=== PATIENT | female | born 2000 | race Two or more races ===

== ENCOUNTER 2024-07-06 22:45 | Inpatient (IN) | payer MEDICAID, SELFPAY ==
[2024-07-06 22:47] VITALS: BMI 21.6
--- NOTE | 2024-07-06 22:51 | EKG_ITS ---
[facility] Test Date: 2024-07-06 Pat Name: IVONE CAMACHO Department: Room: - Gender: Female [employer]: : 2000 Requested By: ED Temporary Provider Order Number: [id number] Reading MD: ED Temporary Provider Measurements Intervals [place] Rate: 152 P: 73 AK: 105 QRS: 92 QRSD: 85 T: 70 QT: 308 QTc: 490 Interpretive Statements SINUS TACHYCARDIA WITH SHORT [place] INTERVAL, POSSIBLE ATRIAL FLUTTER BORDERLINE RIGHT AXIS DEVIATION [QRS AXIS > 90] POSSIBLE RIGHT VENTRICULAR CONDUCTION DELAY [RSR (QR) IN V1/V2] NONSPECIFIC T-WAVE ABNORMALITY CRITICAL TEST RESULT Compared to ECG 07/27/2022 09:02:33 No significant changes /store/S0/[id number]/ecg/[id number].pdf
[2024-07-06 23:15] VITALS: BP 103/71; PULSE 148; RESP 24; TEMP 39.5; O2SAT 96
--- NOTE | 2024-07-06 23:36 | EDNOTE_ITS ---
ED Fever RME/HPI General Chief Complaint: Shortness of Breath/Dyspnea Stated Complaint: SOB, COUGH, HURTS TO WALK, RASH TO ARM Time Seen by Provider: 07/06/24 22:55 Arrival date/time: 07/06/24 22:45 RME / HPI RME / HPI Narrative: This section includes all my notes and documentations, including HPI, PE, and ED course. Alex Shah MD HPI: 23-year-old female here with about a week history of worsening cough, productive cough, purulent sputum, and dyspnea. With fever and chills and bodyaches. No other complaints. ROS: All negative except as documented in HPI. Physical Exam: General: Alert and oriented. Hacking cough noted. Appearance of malaise noted. High fever noted. Eyes: Conjunctivae and lids clear. ENT: No nasal congestion. Pharynx normal. TM normal bilaterally. Neck: Supple. Heart: Severe sinus tachycardia noted (150 bpm). Lungs: Moderate respiratory distress. Severely decreased air movement with bilateral rhonchi and bilateral rails. Abdomen: Soft and nontender. Normal bowel sounds. No distension. No rebound or guarding. Back: No CVA tenderness. Skin: Warm and dry. Neuro: Alert and oriented X 3. I reviewed all diagnostic test results. My interpretation of the EKG is sinus tachycardia with no acute ST?T changes. My interpretation of the chest x-ray is infiltrates. Blood tests remarkable for ESR 42, CRP 6.3. COVID-negative. Influenza positive. UA and UDS pending. RSV and strep and mono pending. At this point, diagnoses include sepsis, pneumonia, influenza, acute bronchospasm. Treatment here included IV fluid, Zofran, Tamiflu, Toradol, Tylenol, Solu- Medrol, DuoNeb, Rocephin, and Zithromax. Significant improvement not noted. I discussed the case with our hospitalist. About the presentation and exam and diagnostics and treatments here. And need of further care in the hospital. Will accept the patient. Alex Shah MD Related Data Home Medications ?Medication ?Instructions ?Recorded ?Confirmed vitamins-iron fumarate 27 1 tab PO QDAY 03/1408/31/22 mg iron-folic acid 0.8 mg tablet ( Vitamin) Allergies Allergy/AdvReac Type Severity Reaction Status Date / Time Sulfa (Sulfonamide Allergy Severe Swelling, Verified 07/06/24 22:47 Antibiotics) hives Course Quality Measures none Orders Category Date Time Status Bedside COVID-19 Antigen Test NOW Care 07/06/24 23:36 Active Bedside Influenza A&B Antigen Test NOW Care 07/06/24 23:37 Completed COVID-19 Screening Questionnaire NOW Care 07/07/24 01:52 Active Decision to Admit X1 Care 07/07/24 01:51 Active EKG (ED ONLY) *Do not use* NOW Care 07/06/24 22:51 Completed Saline [Insert IV] NOW Care 07/06/24 23:37 Active Straight [In and Out Catheter] X1 Care 07/06/24 23:37 Active EKG (ED Only) Stat Exams 07/06/24 22:51 Draft XR chest 1V portable Stat Exams 07/06/24 23:38 Completed Alcohol, Blood Medical Stat Lab 07/06/24 23:53 Completed Amylase Stat Lab 07/06/24 23:53 Completed Bilirubin,Direct Stat Lab 07/06/24 23:53 Completed Blood Culture (Lab) Stat Lab 07/06/24 23:53 Received CBC Stat Lab 07/06/24 23:53 Completed CMP [Comprehensive Metabolic Panel] Stat Lab 07/06/24 23:53 Completed CRP [C-Reactive Protein] Stat Lab 07/06/24 23:53 Completed Drug Screen,Urine Stat Lab 07/06/24 21:16 Received ESR [Sed Rate (ESR)] Stat Lab 07/06/24 23:53 Completed Free T4 (Free Thyroxine) Stat Lab 07/06/24 23:53 Completed HCG Qualitative,Urine Stat Lab 07/06/24 21:16 Received HCG,Qualitative Serum Stat Lab 07/06/24 23:53 Completed Lactate (Lactic Acid) Stat Lab 07/06/24 23:53 Completed Lipase Stat Lab 07/06/24 23:53 Completed Magnesium Stat Lab 07/06/24 23:53 Completed [place] Screen Stat Lab 07/06/24 23:[address] Review Blood Smear Stat Lab 07/06/24 23:53 Completed Procalcitonin Stat Lab 07/06/24 23:53 Completed RSV [Respiratory Syncytial Virus Ag] Stat Lab 07/07/24 01:58 Received Strep A Rapid Stat Lab 07/07/24 01:58 Received TSH [Thyroid Stimulating Hormone] Stat Lab 07/06/24 23:53 Completed Troponin I Stat Lab 07/06/24 23:53 Completed UA, C/S IF [Urinalysis, C/S if Indicated] Stat Lab 07/06/24 21:16 Received ACETAMINOPHEN w/COD 300-30 [Tylenol w/Cod #3] Med 07/07/24 00:31 Discontinued 1 tab PO X1 ONE Acetaminophen Tab [Tylenol Tab] Med 07/06/24 23:37 Discontinued 650 mg PO X1 ONE Albuterol/Ipratr Rt Polina [Duoneb Rt Polina] Med 07/07/24 00:31 Discontinued 3 ml INH X1 ONE Azithromycin Po [Zithromax PO] Med 07/07/24 00:31 Discontinued 500 mg PO X1 ONE Ketorolac Inj [Toradol Inj] Med 07/06/24 23:37 Discontinued 30 mg IVP X1 ONE MethylPREDNISolone.* [SoluMEDROL Inj] Med 07/07/24 00:31 Discontinued 62.5 mg IVP X1 ONE Ondansetron Inj [Zofran Inj] Med 07/06/24 23:37 Discontinued 4 mg IV X1 ONE Oseltamivir [Tamiflu] Med 07/07/24 01:22 Discontinued 75 mg PO X1 ONE Sodium Chloride 0.9% 1000 ml [Ns] 1,000 ml Med 07/06/24 23:37 Discontinued IV 999 mls/hr Sodium Chloride 0.9% 1000 ml [Ns] 1,000 ml Med 07/06/24 23:38 Discontinued IV 999 mls/hr cefTRIAXone [Rocephin] 1,000 mg Med 07/06/24 23:37 Discontinued SODIUM CHLORIDE 0.9% (Popper) [Ns 0.9% (P)] 50 ml IV X1 Vital Signs Vital signs: Vital Signs Temperature 103.1 F H 07/06/24 23:15 Pulse Rate 148 H 07/06/24 23:15 Respiratory Rate 24 H 07/06/24 23:15 Blood Pressure 103/71 07/06/24 23:15 Pulse Oximetry (%) 96 07/06/24 23:15 Oxygen Delivery Method Room Air 07/06/24 23:15 Fever Patient data External records reviewed:: [facility] previous records Clinical information provided by:: patient Social determinants that could affect healthcare access:: housing Patient has the following chronic illnesses:: No chronic medical illness. How is presenting disease/condition affected by chronic disease/condition?: no chronic disease Evaluation data The following diagnostics were reviewed and interpreted by me:: lab results and radiology exam(s) Lab and/or radiology exams considered but not ordered:: None Interpretation Summary: sepsis, pneumonia, influenza, acute bronchospasm Medications / Prescriptions Medications or Prescriptions considered but not ordered:: None Medication administrations:: Medication Administration History Discontinued Medications Acetaminophen (Acetaminophen 325 Mg Tablet) 650 mg PO X1 ONE Stop: 07/06/24 23:38 Last Admin: 07/07/24 00:02 Dose: 650 mg Documented By: REUBEN Acetaminophen/Codeine Phosphate (Acetaminophen W/Cod 300-30 Tablet) 1 tab PO X1 ONE Stop: 07/07/24 00:32 Last Admin: 07/07/24 00:59 Dose: 1 tab Documented By: REUBEN Albuterol/Ipratropium (Albuterol/Ipratropium (Duoneb) Rt Polina 3 Ml Nebu) 3 ml INH X1 ONE Stop: 07/07/24 00:32 Last Admin: 07/07/24 01:24 Dose: 3 ml Documented By: RAYMON Azithromycin (Azithromycin 250 Mg Tablet) 500 mg PO X1 ONE Stop: 07/07/24 00:32 Last Admin: 07/07/24 00:58 Dose: 500 mg Documented By: REUBEN Ceftriaxone Sodium 1,000 mg/ (Sodium Chloride) 50 mls @ 100 mls/hr IV X1 ONE Stop: 07/07/24 00:06 Last Infusion: 07/07/24 01:03 Dose: Infused Documented By: Admin: 07/07/24 00:01 Dose: 100 mls/hr Documented By: REUBEN Sodium Chloride (Ns) 1,000 mls @ 999 mls/hr IV .Q1H1M ONE Stop: 07/07/24 00:37 Last Infusion: 07/07/24 01:04 Dose: Infused Documented By: Admin: 07/07/24 00:01 Dose: 999 mls/hr Documented By: REUBEN Sodium Chloride (Ns) 1,000 mls @ 999 mls/hr IV .Q1H1M ONE Stop: 07/07/24 00:38 Last Infusion: 07/07/24 01:04 Dose: Infused Documented By: Admin: 07/07/24 00:01 Dose: 999 mls/hr Documented By: REUBEN Ketorolac Tromethamine (Ketorolac Inj 30 Mg/Ml Vial) 30 mg IVP X1 ONE Stop: 07/06/24 23:38 Last Admin: 07/07/24 00:03 Dose: 30 mg Documented By: REUBEN Methylprednisolone Sodium Succinate (Methylprednisolone Sod Succ 62.5 Mg/Ml 2ml Vial) 62.5 mg IVP X1 ONE Stop: 07/07/24 00:32 Last Admin: 07/07/24 00:59 Dose: 62.5 mg Documented By: REUBEN Ondansetron HCl (Ondansetron Inj 2 Mg/Ml Inj 2 Ml) 4 mg IV X1 ONE; Protocol Stop: 07/06/24 23:38 Last Admin: 07/07/24 00:02 Dose: 4 mg Documented By: REUBEN Oseltamivir Phosphate (Oseltamivir 75 Mg Capsule) 75 mg PO X1 ONE Stop: 07/07/24 01:23 Last Admin: 07/07/24 02:01 Dose: 75 mg Documented By: REUBEN Treatment here included IV fluid, Zofran, Tamiflu, Toradol, Tylenol, Solu- Medrol, DuoNeb, Rocephin, and Zithromax. Consultations Consultation(s) initiated? (list below): No Diagnosis Fever Differential Diagnosis: cellulitis, fever of unknown origin, gastroenteritis, community acquired pneumonia, pyelonephritis, viral infection, sepsis and influenza Most likely diagnosis given after review of the tests above:: sepsis, pneumonia, influenza, acute bronchospasm Admission Indicated Admission indicated?: indicated Explain why admission is indicated or not indicated:: Sepsis Admission Request Was there a request for admission?: Yes Admission Attestation Admission request attestation: Discussed case with Hospitalist service regarding admission. Discussed patients ED course, exam findings, labs, and radiology results. The Hospitalist [agrees] to accept the patient for admission. Disposition Plan Disposition Plan: Admit Critical Care Time Critical Care Time Critical Care Time: Yes Total Critical Care Time (min.): 36 Attestation: Due to a high probability of clinically significant, life threatening deterioration, the patient required my highest level of preparedness to intervene emergently and I personally spent this critical care time directly and personally managing the patient. This critical care time included obtaining a history; examining the patient; ordering and review of studies; arranging urgent treatment with development of a management plan; evaluation of patient's response to treatment; frequent reassessment; and discussions with family and other providers. It was exclusive of separately billable procedures and treating other patients and teaching time. Alex Shah MD Discharge Plan Plan Patient Disposition: Admit Acute Care w/in Hospital Prescriptions/Referrals Prescriptions/Med Rec: No Action Vitamin 27 mg iron- 0.8 mg Tablet 1 tab PO QDAY Referrals: No Primary/Family,Physician [Primary Care Provider] - In 1 week Problem List Clinical Impression: Sepsis, Influenza, Pneumonia, Acute bronchospasm Patient/Caregiver Discharge Instructions Print Language: Sudanese Stand Alone Forms: Bessie Award Info., Patient Portal Info Letter
--- NOTE | 2024-07-06 23:38 | XR_ITS ---
Examination: AP chest single view TECHNIQUE: AP portable upright chest single view Exam date and time: July 06, 2024 2354 hours INDICATIONS: Shortness of breath today. FINDINGS: Suspicious for early bibasilar pneumonia. Normal heart size The osseous structures are intact IMPRESSION: Suspicious for early bibasilar pneumonia
[2024-07-06 23:40] VITALS: BP 115/74; PULSE 131; RESP 39; O2SAT 99
[2024-07-07] VITALS (27 sets, daily range): BP systolic 77–114; BP diastolic 41–68; PULSE 66–132; RESP 8–39; TEMP 35.9–39.5; O2SAT 3–100
[2024-07-07] LABS: Lactate (Lactic Acid) 1.9 mMol/L (0.4-2.0)
[2024-07-07] MEDS: cefTRIAXone 1,000 MG in SODIUM CHLORIDE 0.9% (Popper) 50 ML 100 MG IV (00:01)
[2024-07-07] MEDS: SODIUM CHLORIDE 0.9% 1000 ML 1,000 ML 999 ML IV ×3 (00:01→05:39)
[2024-07-07] MEDS: ACETAMINOPHEN 325 MG TABLET 650 MG PO (00:02)
[2024-07-07] MEDS: ONDANSETRON INJ 2 MG/ML INJ 2 ML 4 MG IV (00:02)
[2024-07-07] MEDS: KETOROLAC INJ 30 MG/ML VIAL IVP (00:03)
[2024-07-07 00:04] LABS: Basophils # (Auto) 0.1 Thou/mm3 (0.0-0.2); Basophils % (Auto) 1 % (0-2.5); Eosinophils % (Auto) 0 % (0-10); Hematocrit 34.7 % (36.0-46.0); Hemoglobin 11.7 g/dL (12.0-16.0); Immature Granulocytes % (Auto) 1 % (0-0); Immature Granulocytes Auto 0.13 Thou/mm3 (0.00-0.00); Lymphocytes # (Auto) 4.5 Thou/mm3 (1.0-4.8); Lymphocytes % (Auto) 45 % (10-50); Mean Corpuscular HGB Conc 33.7 g/dl (31.0-37.0); Mean Corpuscular Hemoglobin 27.9 pg (25.0-35.0); Mean Corpuscular Volume 83 fL (80-100); Monocytes # (Auto) 0.4 Thou/mm3 (0.0-0.8); Monocytes % (Auto) 4 % (0-12); Neutrophils # (Auto) 4.8 Thou/mm3 (1.8-7.7); Neutrophils % (Auto) 49 % (37-80); Nucleated Red Blood Cell % 0 /100 WBC (0); Platelet Count 124 Thou/mm3 (140-440); RDW Standard Deviation 43.3 fL (36.4-46.3); Red Blood Count 4.19 Miln/mm3 (4.00-5.20); White Blood Count 9.9 Thou/mm3 (3.6-11.0)
[2024-07-07 00:22] LABS: Sed Rate (ESR) 42 mm/hr (0-20)
[2024-07-07] MEDS: AZITHROMYCIN 250 MG TABLET 500 MG PO ×2 (00:58→21:52)
[2024-07-07] MEDS: ACETAMINOPHEN w/COD 300-30 TABLET 1 TAB PO (00:59)
[2024-07-07] MEDS: MethylPREDNISolone SOD SUCC 62.5 MG/ML 2ML VIAL IVP (00:59)
[2024-07-07 01:00] LABS: Band Neutrophils (Manual) 1 % (0-6); Eosinophils (Manual) 1 % (0-4); Lymphocytes (Manual) 36 % (20-44); Monocytes (Manual) 12 % (2-9); Neutrophils (Manual) 50 % (50-70)
[2024-07-07 01:05] LABS: Alanine Aminotransferase 32 U/L (10-49); Albumin, Serum 2.7 gm/dL (3.5-5.0); Albumin/Globulin Ratio 0.5 (1.2-2.2); Alcohol, Blood Medical < 3.0 mg/dL (0-10.0); Alkaline Phosphatase 76 U/L (46-116); Amylase 82 U/L (30-118); Anion Gap 7 (7-16); Aspartate Amino Transferase 68 U/L (0-34); BUN/Creatinine Ratio 13 Ratio (12-20); Bilirubin,Direct 0.1 mg/dL (0.0-0.3); Bilirubin,Total 0.3 mg/dL (0.3-1.2); Blood Urea Nitrogen 9 mg/dL (9-23); C-Reactive Protein 6.3 mg/dL (0.0-0.9); Calcium 7.4 mg/dL (8.3-10.6); Calcium (Corrected) 8.4 mg/dL (8.5-10.1); Carbon Dioxide 21.8 mMol/L (20.0-31.0); Chloride 101 mMol/L (98-107); Creatinine (Component) 0.7 mg/dL (0.6-1.3); Estimated Creatinine Clearance 75.5 mL/min (>60); Free T4 (Free Thyroxine) 1.07 ng/dL (0.89-1.76); Globulin 5.2 gm/dL (2.3-3.5); Glucose 102 mg/dL (74-106); Lipase 64 U/L (12-53); Magnesium 1.7 mg/dL (1.6-2.6); Osmolality,Calculated 259 (275-295); Potassium 3.7 mMol/L (3.4-5.1); Procalcitonin 0.61 ng/ml (0.0-0.49); Sodium 130 mMol/L (136-145); Thyroid Stimulating Hormone 1.16 uIU/mL (0.55-4.78); Total Protein 7.9 gm/dL (5.7-8.2); Troponin I < 0.002 ng/mL (0.0-0.045); eGFR > 60 See Note
[2024-07-07 01:16] LABS: HCG,Qualitative Serum Negative
[2024-07-07] MEDS: ALBUTEROL/IPRATROPIUM (Duoneb) RT SOL 3 ML NEBU INH ×3 (01:24→15:05)
[2024-07-07 01:48] LABS: Path Review Blood Smear Sent to Pathologist
[2024-07-07] MEDS: OSELTAMIVIR 75 MG CAPSULE PO ×3 (02:01→21:53)
[2024-07-07 02:23] LABS: Collection Type, Urine Clean Catch
[2024-07-07 02:30] LABS: HCG Qualitative,Urine Negative
[2024-07-07 02:35] LABS: Bacteria,Urine 3+; Bilirubin,Urine Negative (Negative); Blood,Urine 1+ (Negative); Clarity,Urine Turbid (Clear/Hazy); Color,Urine Yellow (Lt Yel-Yel); Culture Indicated,Urine Yes; Glucose, Urine Negative (Negative); Ketones,Urine Negative (Negative); Leukocyte Esterase,Urine Positive (Negative); Nitrite,Urine Positive (Negative); Protein,Urine 1+ (Neg - Trace); RBC,Urine 2 /hpf (0-3); Specific Gravity,Urine 1.023 (1.001-1.035); Squamous Epithelial Cell,Urine 4 /hpf (0-5); WBC,Urine 51 /hpf (0-5)
--- NOTE | 2024-07-07 02:41 | PD.RESHP ---
Documentation for date of: 07/07/24 [facility] History of Present Illness History of present illness: The patient is a 23-year-old female with significant past medical history of iron deficiency anemia, hypocalcemia and hysterectomy in 2022 after giving of total 5 children, was brought in to ED on 07/06/2024 with chief complaint of chest pain for 7 days. The patient reported that her chest pain was severe, exacerbated by taking deep breaths, and continued to worsen. She reported subjective fever, but no chills, associated with mild headache. She denied any SOB, abdominal pain, any changes in bowel or bladder habit or leg swelling. She also denied any nausea or vomiting. In the ED her vitals were significant for pulse 148, respiratory rate 24, temperature 103.1 saturating 96% on room air. CBC revealed hemoglobin 11.7, MCV 83, platelet 124, ESR 42, sodium 130, calculated osmolality 259, corrected calcium 8.4, AST 68, CRP 6.3, albumin 2.7, lipase 64 and Pro-Rony 0.61. UA revealed turbid urine, 1+ protein, 1+ blood, WBC 51, bacteria 3+, U-Tox pending, RSV, Monospot and group A strep pending. Chest x-ray revealed sinus tachycardia with short MN interval with heart rate 152, CXR was significant for bibasilar early pneumonia. PMH: As mentioned above SHX: Hysterectomy in 2022 Family history: Unremarkable Social history: Denies alcohol or tobacco use, smokes marijuana; last use was 2 days ago, has 5 children Medications: None Allergies: Sulfa; swelling, hives The patient was given ceftriaxone 1 g IV x 1, IV bolus sodium chloride 2 L, acetaminophen 650 mg p.o. x 1, Zofran 4 Mg IV x 1, ketorolac 30 Mg IV x 1, azithromycin 500 Mg p.o. x 1, methylprednisone 62.5 Mg IV x 1, oseltamivir phosphate 75 Mg p.o. x 1 and DuoNeb inhalation x 1 and admitted to telemetry unit for further management of sepsis secondary to pneumonia. Review of Systems Review of Systems Systems Reviewed: All systems reviewed, normal except as documented Exam Vital Signs Temp Pulse Resp BP Pulse Ox O2 Del Method 102.3 F H 112 H 17 103/71 99 Room Air 07/07/24 01:04 07/07/24 01:25 07/07/24 01:25 07/06/24 23:15 07/07/24 01:25 07/06/24 23:15 Narrative Exam General: No acute distress, Alert and Oriented x 3 HEENT: Moist mucous membranes, upper and lower teeth eroded with with gingival swelling Neck: Supple, No masses, No JVD CVS: Sinus tachycardia, No murmurs, rubs or gallops Lungs: Clear to auscultation with no accessory use, no wheeze no rhonchi Abd: Soft, NT/ND, +BS, no organomegaly Ext: No edema, warm and well perfused Skin: No rash Psych: Appropriate mood and affect Results: Labs 07/06/24 23:53 07/06/24 23:53 Labs: Short CBC 07/06/24 Range/Units 23:53 WBC 9.9 (3.6-11.0) Thou/mm3 Hgb 11.7 L (12.0-16.0) g/dL Hct 34.7 L (36.0-46.0) % Plt Count 124 L (140-440) Thou/mm3 BMP 07/06/24 23:53 Sodium 130 L Potassium 3.7 Chloride 101 Carbon Dioxide 21.8 BUN 9 Creatinine 0.7 Glucose 102 Calcium 7.4 L Cardiac Enzymes 07/06/24 Range/Units 23:53 Troponin I < 0.002 (0.0-0.045) ng/mL Liver Function 07/06/24 Range/Units 23:53 Total Bilirubin 0.3 (0.3-1.2) mg/dL Direct Bilirubin 0.1 (0.0-0.3) mg/dL AST 68 H (0-34) U/L ALT 32 (10-49) U/L Alkaline Phosphatase 76 (46-116) U/L Albumin 2.7 L (3.5-5.0) gm/dL Urine 07/06/24 Range/Units 21:16 Urine Color Yellow (Lt Yel-Yel) Urine Clarity Turbid A (Clear/Hazy) Urine pH 6.0 (5.0-7.0) Ur Specific [place] 1.023 (1.001-1.035) Urine Protein 1+ A (Neg - Trace) Urine Glucose (UA) Negative (Negative) Quality Measures Quality Measures none Medications Home Medications and Allergies Home Medications ?Medication ?Instructions ?Recorded ?Confirmed ?Type vitamins-iron fumarate 27 1 tab PO QDAY 03/14/18 08/31/22 History mg iron-folic acid 0.8 mg tablet ( Vitamin) Allergies Allergy/AdvReac Type Severity Reaction Status Date / Time Sulfa (Sulfonamide Allergy Severe Swelling, Verified 07/06/24 22:47 Antibiotics) hives Visit Medications Acetaminophen (Acetaminophen 325 Mg Tablet) 650 mg PO Q6H PRN PRN Reason: Fever >101.5 Stop: 08/06/24 02:28 Hydrocodone Bitart/Acetaminophen (Hydrocodone/Apap 5/325 Tablet) 1 tab PO Q4HR PRN PRN Reason: PAIN SCALE 4-10 Stop: 07/12/24 02:28 Albuterol/Ipratropium (Albuterol/Ipratropium (Duoneb) Rt Polina 3 Ml Nebu) 3 ml INH Q6H HYUN Stop: 08/06/24 05:59 Azithromycin (Azithromycin 250 Mg Tablet) 500 mg PO HS HYUN Stop: 07/14/24 20:59 Calcium Carbonate (Calcium Carbonate 600 Mg Tablet) 600 mg PO BID HYUN Stop: 08/06/24 02:34 Enoxaparin Sodium (Enoxaparin Sod Inj 40 Mg/0.4 Ml Syringe) 40 mg SC QDAY HYUN Stop: 07/21/24 08:59 Ceftriaxone Sodium/Dextrose (Rocephin/D5w 1gm Iv Premix) 50 mls @ 100 mls/hr IV QDAY HYUN Stop: 07/14/24 02:32 Oseltamivir Phosphate (Oseltamivir 75 Mg Capsule) 75 mg PO BID HYUN Stop: 07/14/24 08:59 Discontinued Medications Acetaminophen (Acetaminophen 325 Mg Tablet) 650 mg PO X1 ONE Stop: 07/06/24 23:38 Last Admin: 07/07/24 00:02 Dose: 650 mg Acetaminophen/Codeine Phosphate (Acetaminophen W/Cod 300-30 Tablet) 1 tab PO X1 ONE Stop: 07/07/24 00:32 Last Admin: 07/07/24 00:59 Dose: 1 tab Albuterol/Ipratropium (Albuterol/Ipratropium (Duoneb) Rt Polina 3 Ml Nebu) 3 ml INH X1 ONE Stop: 07/07/24 00:32 Last Admin: 07/07/24 01:24 Dose: 3 ml Azithromycin (Azithromycin 250 Mg Tablet) 500 mg PO X1 ONE Stop: 07/07/24 00:32 Last Admin: 07/07/24 00:58 Dose: 500 mg Ceftriaxone Sodium 1,000 mg/ (Sodium Chloride) 50 mls @ 100 mls/hr IV X1 ONE Stop: 07/07/24 00:06 Last Infusion: 07/07/24 01:03 Dose: Infused Sodium Chloride (Ns) 1,000 mls @ 999 mls/hr IV .Q1H1M ONE Stop: 07/07/24 00:37 Last Infusion: 07/07/24 01:04 Dose: Infused Sodium Chloride (Ns) 1,000 mls @ 999 mls/hr IV .Q1H1M ONE Stop: 07/07/24 00:38 Last Infusion: 07/07/24 01:04 Dose: Infused Ketorolac Tromethamine (Ketorolac Inj 30 Mg/Ml Vial) 30 mg IVP X1 ONE Stop: 07/06/24 23:38 Last Admin: 07/07/24 00:03 Dose: 30 mg Methylprednisolone Sodium Succinate (Methylprednisolone Sod Succ 62.5 Mg/Ml 2ml Vial) 62.5 mg IVP X1 ONE Stop: 07/07/24 00:32 Last Admin: 07/07/24 00:59 Dose: 62.5 mg Ondansetron HCl (Ondansetron Inj 2 Mg/Ml Inj 2 Ml) 4 mg IV X1 ONE; Protocol Stop: 07/06/24 23:38 Last Admin: 07/07/24 00:02 Dose: 4 mg Oseltamivir Phosphate (Oseltamivir 75 Mg Capsule) 75 mg PO X1 ONE Stop: 07/07/24 01:23 Last Admin: 07/07/24 02:01 Dose: 75 mg Assessment & Plan Plan The patient is a 23-year-old female with significant past medical history of iron deficiency anemia, hypocalcemia and hysterectomy in 2022 after giving of total 5 children, was brought in to ED on 07/06/2024 with chief complaint of chest pain for 7 days and admitted to telemetry unit for further management of sepsis secondary to pneumonia. #Sepsis secondary to influenza pneumonia #Influenza pneumonia Patient presented with chest pain for 1 week, reported having fevers Admitted 2/4 SIRS criteria with tachycardia and tachypnea Chest x-ray significant for bibasilar early pneumonia The patient was given ceftriaxone 1 g IV x 1, IV bolus sodium chloride 2 L, acetaminophen 650 mg p.o. x 1, Zofran 4 Mg IV x 1, ketorolac 30 Mg IV x 1, azithromycin 500 Mg p.o. x 1, methylprednisone 62.5 Mg IV x 1, oseltamivir phosphate 75 Mg p.o. x 1 and DuoNeb inhalation x 1 - Started on ceftriaxone 1 g daily - Started on azithromycin, 500 mg daily - Tamiflu 75 Mg twice daily - DuoNeb every 6 hourly scheduled - Incentive spirometry - Pending Monus port, RSV and group A strep - Blood and urine culture pending - Daily a.m. labs for CBC, CMP and electrolytes #Mild hypocalcemia Patient has history of hypocalcemia, and admitted that due to hypocalcemia she lost all her teeth while she was Presented with calcium level 8.4 - Started on calcium carbonate 600 Mg twice daily - Vitamin D 1000 IU daily - Ordered vitamin D level - Daily a.m. labs for CMP #Mild hypoosmolar hypovolemic hyponatremia Secondary to sepsis Presented with sodium 130, osmolality 259 - Patient received 2 L of IV normal saline bolus in the ED - Daily a.m. labs for sodium #Proteinuria #Microscopic hematuria Likely secondary to sepsis #Asymptomatic bacteriuria UA revealed turbid urine, 1+ protein, 1+ blood, WBC 51, bacteria 3+ However, patient denied any urinary symptoms - Continue to treat underlying sepsis - Repeat UA in couple of days #Methamphetamine abuse disorder Patient reported smoking methamphetamine, last taken 2 days ago - Social service referral done Health maintenance: Dispo: Patient admitted to telemetry unit for further management of sepsis secondary to pneumonia DVT prophylaxis: Not indicated Diet: Regular diet, mechanically altered CODE STATUS: Full code The patient's management plan was discussed with my attending physician MD Josiah Gallo MD, PGY2 Attending Provider Attestation/Addendum 23-year-old female with history of anemia was admitted for fever, pleuritic chest pain. Labs showed a white count of 9900 low platelet count of 124,000, hyponatremia, hypocalcemia, hypoalbuminemia. Chest x-ray showed bilateral infiltrates. Patient was admitted for pneumonia. Follow culture results. Patient was started with Tamiflu for influenza pneumonia.
[2024-07-07 02:56] LABS: Respiratory Syncytial Virus Ag Negative (Negative)
[2024-07-07 02:57] LABS: Strep A Rapid Positive (Negative)
[2024-07-07 03:33] LABS: Amphetamine/Methamp Scrn,U Positive (Negative); Barbiturate Screen,Urine Negative (Negative); Benzodiazepines Screen,Urine Negative (Negative); Benzoylecgonine Screen, Ur Negative (Negative); Fentanyl Screen,Urine Negative (Negative); Opiate Screen,Urine Positive (Negative); THC Screen,Urine Negative (Negative)
[2024-07-07 05:12] LABS: Basophils # (Auto) 0.1 Thou/mm3 (0.0-0.2); Basophils % (Auto) 1 % (0-2.5); Eosinophils % (Auto) 0 % (0-10); Hematocrit 31.3 % (36.0-46.0); Hemoglobin 10.3 g/dL (12.0-16.0); Immature Granulocytes % (Auto) 1 % (0-0); Lymphocytes # (Auto) 2.8 Thou/mm3 (1.0-4.8); Lymphocytes % (Auto) 36 % (10-50); Mean Corpuscular HGB Conc 32.9 g/dl (31.0-37.0); Mean Corpuscular Hemoglobin 27.7 pg (25.0-35.0); Mean Corpuscular Volume 84 fL (80-100); Monocytes # (Auto) 0.2 Thou/mm3 (0.0-0.8); Monocytes % (Auto) 2 % (0-12); Neutrophils # (Auto) 4.6 Thou/mm3 (1.8-7.7); Neutrophils % (Auto) 60 % (37-80); Nucleated Red Blood Cell % 0 /100 WBC (0); Platelet Count 114 Thou/mm3 (140-440); RDW Standard Deviation 44.2 fL (36.4-46.3); Red Blood Count 3.72 Miln/mm3 (4.00-5.20); White Blood Count 7.7 Thou/mm3 (3.6-11.0)
[2024-07-07 05:36] LABS: Alanine Aminotransferase 30 U/L (10-49); Albumin, Serum 2.3 gm/dL (3.5-5.0); Albumin/Globulin Ratio 0.5 (1.2-2.2); Alkaline Phosphatase 66 U/L (46-116); Anion Gap 8 (7-16); Aspartate Amino Transferase 63 U/L (0-34); BUN/Creatinine Ratio 17 Ratio (12-20); Bilirubin,Total 0.2 mg/dL (0.3-1.2); Blood Urea Nitrogen 10 mg/dL (9-23); Calcium (Corrected) 8.4 mg/dL (8.5-10.1); Carbon Dioxide 22.4 mMol/L (20.0-31.0); Cardiac Risk Estimate 5.6 RATIO (3.7-5.6); Chloride 105 mMol/L (98-107); Cholesterol 67 mg/dL (132-200); Creatinine (Component) 0.6 mg/dL (0.6-1.3); Estimated Creatinine Clearance 88.1 mL/min (>60); Globulin 4.6 gm/dL (2.3-3.5); Glucose 128 mg/dL (74-106); HDL Cholesterol 12 mg/dL (40-60); LDL Cholesterol,Calculated 26 mg/dL (0-130); Magnesium 1.7 mg/dL (1.6-2.6); Osmolality,Calculated 271 (275-295); Potassium 3.9 mMol/L (3.4-5.1); Sodium 135 mMol/L (136-145); Total Protein 6.9 gm/dL (5.7-8.2); Triglycerides 145 mg/dL (30-150); eGFR > 60 See Note
[2024-07-07 05:48] LABS: Iron 5 mcg/dL (50-170); Percent Iron Saturation 2 % (20-55); Total Iron Binding Capacity 181 mcg/dL (250-425); Unsaturated Iron Binding 176 (225-295)
--- NOTE | 2024-07-07 05:52 | PC.NURSE ---
Resident made aware of hypotension, no new orders given.
[2024-07-07 06:08] LABS: Vitamin D 25 Hydroxy Total 10.3 ng/mL (7.3-40.2)
--- NOTE | 2024-07-07 08:10 | PD.EDADDENDU ---
Emergency Room Addendum <Margarita Holt - Last Filed: 07/07/24 15:34> Addendum Narrative: At 2009 hours, Dr. Escobedo at bedside noted MAP was low, current BP was 82/50. He recommends additional fluids and floor admission, pateint was already admitted to telemedicine. <Mary Anne Mar MD - Last Filed: 07/08/24 16:55> Addendum Narrative: 2009: Dr. Escobedo at bedside to evaluate patient. Noted MAP<65 , BP was 82/50. He recommends additional fluid bolus and MAP>65 prior to floor admission. May need ICU consult.
[2024-07-07] MEDS: SODIUM CHLORIDE 0.9% 500 ML 500 ML 999 ML IV ×2 (08:15→10:06)
--- NOTE | 2024-07-07 08:38 | PC.NURSE ---
Md notified of patient's hypotension. Multiple MDs came bedside to assess patient. New order placed and being carried out. Plant to reassess after orders completed.
[2024-07-07] MEDS: CHOLECALCIFEROL (Vitamin D3) 1,000 IU TABLET 1000 IU PO (09:10)
[2024-07-07] MEDS: CALCIUM CARBONATE 600 MG TABLET PO ×2 (09:11→21:53)
[2024-07-07 09:29] LABS: Lactate (Lactic Acid) 1.2 mMol/L (0.4-2.0)
[2024-07-07 09:37] LABS: Mono Screen Negative (Negative)
--- NOTE | 2024-07-07 09:43 | PC.RT ---
PT REFUSED ABG AT THIS TIME, DR LUCIANO MADE AWARE
[2024-07-07 09:47] LABS: Base Excess, Venous -7 (-3-3); O2 Saturation, Venous 98 % (96-97); PCO2, Venous 41 mmHg (36-56); PO2, Venous 97 mmHg (15-58); pH, Venous 7.29 (7.33-7.66)
--- NOTE | 2024-07-07 11:31 | PD.RESPRO ---
Documentation for date of: 07/07/24 Subjective Subjective Interval history: Patient seen and examined at bedside. Patient admitted overnight for sepsis secondary to influenza pneumonia and urinary tract infection. Patient significantly hypotensive at bedside, MAP at times lower than 65, patient had received total 3 L of fluid overnight, was given 2 additional bolus of 500 cc. Patient's MAP currently in 60s, will continue to monitor, lactate was negative, VBG showed pH 7.29, corrected 7.34. Patient is alert and oriented x 3, somnolent otherwise labs significant for severe iron deficiency and hypocalcemia. Exam Vital Signs Temp Pulse Resp BP Pulse Ox O2 Del Method O2 Flow Rate 97.5 F 81 15 88/56 L 98 Room Air 3 07/07/24 08:06 07/07/24 10:11 07/07/24 10:11 07/07/24 10:11 07/07/24 10:11 07/07/24 10:11 07/07/24 08:50 Narrative Exam General: No acute distress, Alert and Oriented x 3 HEENT: Moist mucous membranes, upper and lower teeth eroded with with gingival swelling Neck: Supple, No masses, No JVD CVS: Regular rate and rhythm, No murmurs, rubs or gallops Lungs: Clear to auscultation with no accessory use, no wheeze no rhonchi Abd: Soft, NT/ND, +BS, no organomegaly Ext: No edema Skin: No rash Psych: Appropriate mood and affect Objective Labs 07/07/24 04:48 07/07/24 04:48 Labs: Laboratory Results - last 24 hr 07/06/24 07/06/24 07/07/24 21:16 23:53 01:58 WBC 9.9 RBC 4.19 Hgb 11.7 L Hct 34.7 L MCV 83 MCH 27.9 MCHC 33.7 RDW Std Deviation 43.3 Plt Count 124 L Neut % (Auto) 49 Lymph % (Auto) 45 Towner % (Auto) 4 Eos % (Auto) 0 Baso % (Auto) 1 Neut # (Auto) 4.8 Lymph # (Auto) 4.5 Towner # (Auto) 0.4 Eos # (Auto) 0.0 Baso # (Auto) 0.1 Immature Gran # (Auto) 0.13 H Absolute Nucleated RBC 0.00 Immature Gran % 1 H Neutrophils % (Manual) 50 Monocytes % (Manual) 12 H Eosinophils % (Manual) 1 Nucleated RBC % 0 Band Neutrophils 1 Lymphocytes (Manual) 36 Other Cell Type Smear Path Review Sent to Pathologist ESR 42 H VBG pH VBG pCO2 VBG pO2 VBG O2 Sat (Britany) VBG Base Excess Sodium 130 L Potassium 3.7 Chloride 101 Carbon Dioxide 21.8 Anion Gap 7 BUN 9 Creatinine 0.7 Estim Creat Clear Calc 75.5 eGFR > 60 BUN/Creatinine Ratio 13 Glucose 102 Calculated Osmolality 259 L Lactic Acid 1.9 Calcium 7.4 L Corrected Calcium 8.4 L Magnesium 1.7 Iron TIBC Iron Saturation Unsat Iron Binding Total Bilirubin 0.3 Direct Bilirubin 0.1 AST 68 H ALT 32 Alkaline Phosphatase 76 Troponin I < 0.002 C-Reactive Prot, Quant 6.3 H Total Protein 7.9 Albumin 2.7 L Globulin 5.2 H Albumin/Globulin Ratio 0.5 L Triglycerides Cholesterol LDL Cholesterol, Calc HDL Cholesterol Cholesterol/HDL Ratio Amylase 82 Lipase 64 H 25-OH Vitamin D Total Procalcitonin 0.61 H TSH 1.16 Free T4 1.07 HCG, Qual Negative Ur Collection Type Clean Catch Urine Color Yellow Urine Clarity Turbid A Urine pH 6.0 Ur Specific [place] 1.023 Urine Protein 1+ A Urine Glucose (UA) Negative Urine Ketones Negative Urine Blood 1+ A Urine Nitrite Positive Urine Bilirubin Negative Urine Urobilinogen (Auto) 2.0 Ur Leukocyte Esterase Positive Urine RBC 2 Urine WBC 51 H Ur Squamous Epith Cells 4 Urine Bacteria 3+ A Ur Culture Indicated? Yes Urine HCG, Qual Negative Urine Opiates Screen Positive A Urine Fentanyl Screen Negative Ur Barbiturates Screen Negative U Amphetamin/Meth Scrn Positive A U Benzodiazepines Scrn Negative U Cocaine Metab Screen Negative U Marijuana (THC) Screen Negative Ethyl Alcohol < 3.0 Monoscreen Negative RSV Rapid Negative Group A Strep Rapid Positive A 07/07/24 07/07/24 04:48 09:00 WBC 7.7 RBC 3.72 L Hgb 10.3 L Hct 31.3 L MCV 84 MCH 27.7 MCHC 32.9 RDW Std Deviation 44.2 Plt Count 114 L Neut % (Auto) 60 Lymph % (Auto) 36 Towner % (Auto) 2 Eos % (Auto) 0 Baso % (Auto) 1 Neut # (Auto) 4.6 Lymph # (Auto) 2.8 Towner # (Auto) 0.2 Eos # (Auto) 0.0 Baso # (Auto) 0.1 Immature Gran # (Auto) 0.10 H Absolute Nucleated RBC 0.00 Immature Gran % 1 H Neutrophils % (Manual) Monocytes % (Manual) Eosinophils % (Manual) Nucleated RBC % 0 Band Neutrophils Lymphocytes (Manual) Other Cell Type Smear Path Review ESR VBG pH 7.29 L VBG pCO2 41 VBG pO2 97 H VBG O2 Sat (Britany) 98 H VBG Base Excess -7 L Sodium 135 L Potassium 3.9 Chloride 105 Carbon Dioxide 22.4 Anion Gap 8 BUN 10 Creatinine 0.6 Estim Creat Clear Calc 88.1 eGFR > 60 BUN/Creatinine Ratio 17 Glucose 128 H Calculated Osmolality 271 L Lactic Acid 1.2 Calcium 7.0 L Corrected Calcium 8.4 L Magnesium 1.7 Iron 5 L TIBC 181 L Iron Saturation 2 L Unsat Iron Binding 176 L Total Bilirubin 0.2 L Direct Bilirubin AST 63 H ALT 30 Alkaline Phosphatase 66 Troponin I C-Reactive Prot, Quant Total Protein 6.9 Albumin 2.3 L Globulin 4.6 H Albumin/Globulin Ratio 0.5 L Triglycerides 145 Cholesterol 67 L LDL Cholesterol, Calc 26 HDL Cholesterol 12 L Cholesterol/HDL Ratio 5.6 Amylase Lipase 25-OH Vitamin D Total 10.3 Procalcitonin TSH Cancelled Free T4 HCG, Qual Ur Collection Type Urine Color Urine Clarity Urine pH Ur Specific [place] Urine Protein Urine Glucose (UA) Urine Ketones Urine Blood Urine Nitrite Urine Bilirubin Urine Urobilinogen (Auto) Ur Leukocyte Esterase Urine RBC Urine WBC Ur Squamous Epith Cells Urine Bacteria Ur Culture Indicated? Urine HCG, Qual Urine Opiates Screen Urine Fentanyl Screen Ur Barbiturates Screen U Amphetamin/Meth Scrn U Benzodiazepines Scrn U Cocaine Metab Screen U Marijuana (THC) Screen Ethyl Alcohol Monoscreen RSV Rapid Group A Strep Rapid ABG Interpretation ABG results: 07/07/24 09:00 VBG pH 7.29 L VBG pCO2 41 VBG pO2 97 H VBG Base Excess -7 L Quality Measures Quality Measures none Assessment & Plan Assessment Current Active Medications: Generic Name Dose Route Start Last Admin Trade Name Freq PRN Reason Stop Dose Admin Acetaminophen 650 mg 07/07/24 02:29 Acetaminophen 325 Mg Tablet PO 08/06/24 02:28 Q6H PRN Fever >101.5 Hydrocodone Bitart/Acetaminophen 1 tab 07/07/24 02:29 Hydrocodone/Apap 5/325 Tablet PO 07/12/24 02:28 Q4HR PRN PAIN SCALE 4-10 Albuterol/Ipratropium 3 ml 07/07/24 13:00 Albuterol/Ipratropium (Duoneb) Rt Polina 3 Ml Nebu INH 08/06/24 12:59 Q6HRRT HYUN Azithromycin 500 mg 07/07/24 21:00 Azithromycin 250 Mg Tablet PO 07/14/24 20:59 HS HYUN Calcium Carbonate 600 mg 07/07/24 02:35 07/07/24 09:11 Calcium Carbonate 600 Mg Tablet PO 08/06/24 02:34 600 mg BID HYUN Administration Ceftriaxone Sodium/Dextrose 1 gm in 50 mls @ 100 mls/hr 07/07/24 21:00 Rocephin/D5w 1gm Iv Premix IV 07/14/24 20:59 HS HYUN Oseltamivir Phosphate 75 mg 07/07/24 09:00 07/07/24 08:34 Oseltamivir 75 Mg Capsule PO 07/14/24 08:59 75 mg BID HYUN Administration Vitamin D 1,000 iu 07/07/24 09:00 07/07/24 09:10 Cholecalciferol (Vitamin D3) 1,000 Iu Tablet PO 08/06/24 08:59 1,000 iu DAILY HYUN Administration Plan Assessment and plan: Summary: The patient is a 23-year-old female with significant past medical history of iron deficiency anemia, hypocalcemia and hysterectomy in 2022 after giving of total 5 children, was brought in to ED on 07/06/2024 with chief complaint of chest pain for 7 days and admitted to telemetry unit for further management of sepsis secondary to pneumonia. #Suspicion of Sepsis secondary to #Bibasilar pneumonia #Influenza AMB positive #Strep A throat positive #Urinary tract infection #Hypotension Patient presented with chest pain for 1 week, reported having fevers Admitted 3/4 SIRS criteria with fever, tachycardia and tachypnea Chest x-ray significant for bibasilar early pneumonia, patient tested positive for influenza A&B, positive for group A strep. RSV and monoscreen negative The patient was given ceftriaxone 1 g IV x 1, IV bolus sodium chloride 2 L, acetaminophen 650 mg p.o. x 1, Zofran 4 Mg IV x 1, ketorolac 30 Mg IV x 1, azithromycin 500 Mg p.o. x 1, methylprednisone 62.5 Mg IV x 1, oseltamivir phosphate 75 Mg p.o. x 1 and DuoNeb inhalation x 1 Overnight patient was given another liter of IV fluid bolus, patient's mean arterial pressures was less than 65, was given an additional two 500 cc boluses of NS Urinalysis significant for urine protein 1+, blood 1+, nitrite positive, leukocyte esterase positive, urine WBC 51, bacteria 3+ Plan: -Continue ceftriaxone 1 g daily (07/07- -continue azithromycin, 500 mg daily -Continue Tamiflu 75 Mg twice daily -Continue DuoNeb every 6 hourly scheduled -DuoNeb as needed -Follow blood and urine culture pending #Mild hypocalcemia Patient has history of hypocalcemia Presented with calcium level 8.4 - Started on calcium carbonate 600 Mg twice daily - Vitamin D 1000 IU daily - Follow vitamin D level #Mild hypoosmolar hypovolemic hyponatremia Secondary to sepsis Presented with sodium 130, osmolality 259 -Follow sodium level in a.m. #Normocytic anemia #Iron deficiency #Thrombocytopenia Patient CBC shows hemoglobin 10.3, hematocrit 31.3, RBC 3.7 Iron panel significant for iron 5, TIBC 181, iron saturation 2%, unsat iron binding 176 #Methamphetamine use disorder #Opiate use disorder Patient reported smoking methamphetamine, last taken 2 days ago Patient denies opiate use. - Social service referral done Health maintenance: Dispo: Patient admitted to telemetry unit for further management of sepsis secondary to pneumonia DVT prophylaxis: Heparin Diet: Regular diet, mechanically altered CODE STATUS: Full code Case discussed with Attending Dr. Escobedo and Dr. Francis PGY2. Evie Snyder PGY1 Disclaimer: This note was dictated by speech recognition. Minor errors in business continuity strategy director may be present due to voice recognition software. Attending Provider Attestation/Addendum I reviewed labs, imaging, EKG, home medications and prior available records. Face to face evaluation was performed by me. I have personally examined the patient and discussed assessment and plan with the IM team. I reviewed the resident note and agree with the plan with exceptions as below. Acute hypertension Sepsis Influenza A Influenza B Acute UTI Thrombocytopenia Methamphetamine abuse Strep A+ Gave 1 L bolus after which BP improved Lactic acid is normal. Discussed with ICU: No need for vasopressors or ICU level of care. Continue telemetry Continue azithromycin and ceftriaxone Follow-up blood and urine cultures Started Tamiflu Monitor CBC Avoid methamphetamine use
--- NOTE | 2024-07-07 14:57 | PC.NURSE ---
Patient stated she was short of breath and inquired about her breathing treatment. [employer] Supervisor contracted RT since she had nonadministered the treatment. RT states they were too short staffed and state is here so she could not and no other RT in the hospital was available. RT states she will now come give the treatment but at her assessment the patient was not short of breath. Family and patient state that there was no assessment and no one had entered the room to check on her respiratory status.
[2024-07-07] MEDS: cefTRIAXone/D5w 1gm IV premix 1 GM/50 ML BAG IV (21:53)
[2024-07-07] MEDS: HEPARIN SOD INJ 5000 UNIT/ML VIAL SC (21:53)
[2024-07-08] VITALS: BP 96/56; PULSE 81; RESP 20; TEMP 36.3; O2SAT 96
--- NOTE | 2024-07-08 00:33 | PD.RESEVENT ---
Documentation for date of: 07/08/24 Event Note Event Note: At 12:17 AM I got a call from the nurse that the patient wants to leave AMA because her family member is not allowed to stay overnight and she cannot sleep without her family member. She was explained that she needs to finish her antibiotics course and that she requires fluids, but she requested to have her antibiotics prescription to be sent to the pharmacy. She was explained that leaving right now we will put her on in danger of life-threatening complications of sepsis and infection. She said she understands it and wants to leave AMA. She was AO x 3 and demonstrated understanding of the consequences of leaving AMA. She was given AMA note and she signed in the presence of witnesses Maria Dolores PENDLETON and Minerva PENDLETON. I attempted to contact her point of contact, her mother Joce, but she did not pick pulling machine operator the phone. Her medication were sent to the pharmacy of her choice. Plan of care discussed with attending Dr. Valdivia, PGY-[address] Capps. Jennifer Okeefe MD, PGY 1. Brief attending physician note: Patient is alert and oriented x 3. Risk for noncompliance discussed. Patient should follow-up with her PCP.
--- NOTE | 2024-07-08 00:46 | PC.NURSE ---
Patient left AMA due to being upset that her significant other was not able to stay the night with her and that she feels anxious without him. Pt edu on visitor policy. Dr. Padron also at bedside edu pt on risks of leaving AMA. Pt verbalized understanding but states she will still be leaving. AMA form signed by pt; IV removed. Patient escorted out of facility by security.
--- NOTE | 2024-07-08 15:00 | PD.RESDS ---
Planned Discharge Date 07/08/24 DS: Providers Provider Date of admission: 07/07/24 02:29 Primary care physician: Physician No Primary/Family Admitting Provider: Sandeep Valdivia MD Attending Provider on Admission: Sal Escobedo MD Attending Provider on DC: Sandeep Valdivia MD Discharging Provider: Sandeep Valdivia MD DS: Diagnosis Problem List Completed Was Problem List Reviewed/Reconciled?: Yes Hospital Course Hospital Course Hospital course: Hospital course: Ms. Green is a 23-year-old female with past medical history of hypocalcemia, iron deficiency anemia, hysterectomy in 2022 status post Intraop-hemorrhage and lower uterine segment expanding hematoma, history of cocaine use and methamphetamine use who presented to [facility] with a chief complaint of chest pain, patient was found to be SIRS +3/4, chest x-ray was positive for bibasilar pneumonia, patient tested positive for influenza A & B, along with group A strep, patient had qSOFA of 2, was significantly septic and hypotensive, MAP noted to be multiple times around 50-60, patient was given additional fluid boluses to maintain a MAP of more than 65. Patient was started on IV antibiotics and Tamiflu, blood cultures and urine cultures were ordered. With the progression of hospital course patient decided to leave AGAINST MEDICAL ADVICE because her family member was not allowed to stay overnight and she stated that she cannot sleep without her family member. Patient verbalized understanding of danger of sepsis and life-threatening complications and she still decided to leave AGAINST MEDICAL ADVICE, patient was alert and oriented x 3. Oral antibiotics were sent by night float to complete the course of treatment. Diagnosis: #Sepsis secondary to #Bibasilar pneumonia #Influenza A & B positive #Strep A throat positive #Urinary tract infection #Hypotension #Mild hypocalcemia #Mild hypoosmolar hypovolemic hyponatremia #Normocytic anemia #Iron deficiency #Thrombocytopenia #Methamphetamine use disorder #Opiate use disorder Case discussed with Attending Dr. Escobedo and Dr. Francis PGY2. Evie Snyder PGY1 Disclaimer: This note was dictated by speech recognition. Minor errors in attorney general may be present due to voice recognition software. Time Spent with Patient Time attestation: Total time spent providing and/or coordinating discharge services: Exam Vital Signs Temp Pulse Resp BP Pulse Ox O2 Del Method O2 Flow Rate 97.3 F 81 20 96/56 L 96 Room Air 2 04/08/25 00:00 07/08/24 00:00 07/08/24 00:00 07/08/24 00:00 07/08/24 00:00 07/07/24 15:14 07/07/24 19:01 Narrative Exam Exam not performed. Discharge Plan Plan Patient Disposition: Left Against Medical Advice Prescriptions/Referrals Prescriptions/Med Rec: New cholecalciferol (vitamin D3) 1,250 mcg (50,000 unit) capsule 1,250 mcg PO QWEEK Qty: 7 0RF calcium carbonate 500 mg calcium (1,250 mg) tablet 500 mg PO QDAY Qty: 30 3RF folic acid 1 mg tablet 1 mg PO QDAY Qty: 30 3RF ferrous sulfate 325 mg (65 mg iron) tablet,delayed release (DR/EC) 325 mg PO Q OTHER DAY Qty: 30 3RF amoxicillin-pot clavulanate 875-125 mg tablet 1 tab PO BID Qty: 14 0RF oseltamivir [Tamiflu] 75 mg capsule 75 mg PO BID Qty: 7 0RF azithromycin 500 mg tablet 500 mg PO QDAY Qty: 2 0RF Vitamin C 100 mg tablet 100 mg PO Q OTHER DAY Qty: 30 3RF Rx Instructions: Please take this medicine along with ferrous sulfate. No Action Vitamin 27 mg iron- 0.8 mg Tablet 1 tab PO QDAY Referrals: No Primary/Family,Physician [Primary Care Provider] - Patient/Caregiver Discharge Instructions Print Language: Swedish Quality Discharge Quality Measures VTE prophylaxis and sepsis MD Attestestation MD Attestation I reviewed labs, imaging, EKG, home medications and prior available records. Face to face evaluation was performed by me. I have personally examined the patient and discussed assessment and plan with the IM team. I reviewed the resident note and agree with the plan with exceptions as below. Acute hypertension Sepsis Influenza A Influenza B Acute UTI Thrombocytopenia Methamphetamine abuse Strep A+ Patient left the hospital AGAINST MEDICAL ADVICE Encourage oral hydration Prescribed Augmentin and azithromycin Follow-up blood and urine cultures Continue Tamiflu Monitor CBC as outpatient Avoid methamphetamine use Time spent is 40 minutes. More than 50% of the time was spent on patient education and coordination of care.
== END 2024-07-08 00:36 | disposition left against medical advice (07) | DRG 720 ==
LOC: SERX 07-07 01:54 → SERHOLD 07-07 03:07 → S2NX 07-07 15:23
PROVIDERS: Student in an Organized Health Care Education/Training Program; Admitting Provider Internal Medicine; Emergency Provider Emergency Medicine; Visit Provider Student in an Organized Health Care Education/Training Program
DX: A41.89 Other specified sepsis (principal); J10.00 Influenza due to other identified influenza virus with unspecified type of pneumonia; E83.51 Hypocalcemia; E86.1 Hypovolemia; E87.1 Hypo-osmolality and hyponatremia; R80.9 Proteinuria, unspecified; R31.29 Other microscopic hematuria; F15.10 Other stimulant abuse, uncomplicated; E88.09 Other disorders of plasma-protein metabolism, not elsewhere classified; D50.9 Iron deficiency anemia, unspecified; N39.0 Urinary tract infection, site not specified; J02.0 Streptococcal pharyngitis; I10 Essential (primary) hypertension; I95.9 Hypotension, unspecified; D69.6 Thrombocytopenia, unspecified; D64.9 Anemia, unspecified; F11.10 Opioid abuse, uncomplicated; Z90.710 Acquired absence of both cervix and uterus; Z88.2 Allergy status to sulfonamides; Z88.1 Allergy status to other antibiotic agents; B96.20 Unspecified Escherichia coli [E. coli] as the cause of diseases classified elsewhere; Z53.29 Procedure and treatment not carried out because of patient's decision for other reasons
CPT/HCPCS: 36415; 36600; 71045; 80053; 80061; 80307; 80320; 81001; 81025; 82150; 82248; 82306; 82803; 83540; 83550; 83605; 83690; 83735; 84100; 84145; 84439; 84443; 84484; 84703; 85025; 85652; 86140; 86308; 87040; 87077; 87086; 87186; 87400; 87634; 87651; 87811; 93005; 94640; 96361; 96365; 96375; 99291; A9270; J0696; J1643; J1885; J2405; J2919; J7030; J7040; J7050; G0480

== ENCOUNTER 2024-07-08 08:12 | Emergency (ER) | payer MEDICAID, SELFPAY ==
[2024-07-08 08:13] VITALS: BMI 21.6
[2024-07-08 08:22] VITALS: BP 102/60; PULSE 140; RESP 16; TEMP 39.3; O2SAT 95
--- NOTE | 2024-07-08 08:31 | PD.EDRME ---
Rapid Medical Screening Exam RME Arrival date/time: 07/08/24 08:12 23-year-old female presents to the Emergency Department today stating that she left AGAINST MEDICAL ADVICE from the hospital she did not want to be alone. Patient tested positive for influenza, pneumonia, UTI and strep throat Chief Complaint: Flu Like Symptoms Time Seen by Provider: 07/08/24 08:18 Vital signs: Vital Signs Temperature 102.8 F H 07/08/24 08:22 Pulse Rate 140 H 07/08/24 08:22 Respiratory Rate 16 07/08/24 08:22 Blood Pressure 102/60 07/08/24 08:22 Pulse Oximetry (%) 95 07/08/24 08:22 Oxygen Delivery Method Room Air 07/08/24 08:22
[2024-07-08 08:36] VITALS: TEMP 39.3
[2024-07-08] MEDS: ACETAMINOPHEN 325 MG TABLET 650 MG PO (08:36)
[2024-07-08] MEDS: IBUPROFEN TAB 600 MG TABLET PO (08:36)
--- NOTE | 2024-07-08 09:26 | PC.NURSE ---
Patient to er from lobby with c/o cough and body aches states she was here last pm and left, patient states she feels worse, new orders received. Call light within reach.
[2024-07-08 09:32] LABS: Lactate (Lactic Acid) 1.2 mMol/L (0.4-2.0)
[2024-07-08 09:35] VITALS: BP 100/66; PULSE 113; RESP 30; TEMP 37.3; TEMP 37.4; O2SAT 96
[2024-07-08 09:36] VITALS: TEMP 37.4
[2024-07-08 09:37] LABS: Basophils # (Auto) 0.1 Thou/mm3 (0.0-0.2); Basophils % (Auto) 1 % (0-2.5); Eosinophils % (Auto) 0 % (0-10); Hematocrit 28.9 % (36.0-46.0); Hemoglobin 9.7 g/dL (12.0-16.0); Immature Granulocytes % (Auto) 2 % (0-0); Immature Granulocytes Auto 0.17 Thou/mm3 (0.00-0.00); Lymphocytes # (Auto) 2.1 Thou/mm3 (1.0-4.8); Lymphocytes % (Auto) 29 % (10-50); Mean Corpuscular HGB Conc 33.6 g/dl (31.0-37.0); Mean Corpuscular Hemoglobin 28.3 pg (25.0-35.0); Mean Corpuscular Volume 84 fL (80-100); Monocytes # (Auto) 0.3 Thou/mm3 (0.0-0.8); Monocytes % (Auto) 5 % (0-12); Neutrophils # (Auto) 4.6 Thou/mm3 (1.8-7.7); Neutrophils % (Auto) 63 % (37-80); Nucleated Red Blood Cell % 0 /100 WBC (0); Platelet Count 148 Thou/mm3 (140-440); RDW Standard Deviation 44.3 fL (36.4-46.3); Red Blood Count 3.43 Miln/mm3 (4.00-5.20); White Blood Count 7.3 Thou/mm3 (3.6-11.0)
[2024-07-08] MEDS: SODIUM CHLORIDE 0.9% 1000 ML 1,000 ML 999 ML IV (09:37)
[2024-07-08 09:57] VITALS: BP 100/66; PULSE 121; RESP 19; TEMP 37.2; O2SAT 97
[2024-07-08 10:03] LABS: Alanine Aminotransferase 39 U/L (10-49); Albumin, Serum 2.1 gm/dL (3.5-5.0); Albumin/Globulin Ratio 0.5 (1.2-2.2); Alkaline Phosphatase 60 U/L (46-116); Anion Gap 6 (7-16); Aspartate Amino Transferase 79 U/L (0-34); BUN/Creatinine Ratio 16 Ratio (12-20); Bilirubin,Total 0.2 mg/dL (0.3-1.2); Blood Urea Nitrogen 8 mg/dL (9-23); Calcium 7.1 mg/dL (8.3-10.6); Calcium (Corrected) 8.6 mg/dL (8.5-10.1); Carbon Dioxide 22.3 mMol/L (20.0-31.0); Chloride 108 mMol/L (98-107); Creatinine (Component) 0.5 mg/dL (0.6-1.3); Estimated Creatinine Clearance 105.7 mL/min (>60); Globulin 4.3 gm/dL (2.3-3.5); Glucose 92 mg/dL (74-106); Lipase 64 U/L (12-53); Osmolality,Calculated 270 (275-295); Potassium 4.3 mMol/L (3.4-5.1); Procalcitonin 0.48 ng/ml (0.0-0.49); Sodium 136 mMol/L (136-145); Total Protein 6.4 gm/dL (5.7-8.2); eGFR > 60 See Note
--- NOTE | 2024-07-08 10:45 | PC.NURSE ---
Patient left AMA, states she is tired of waiting, Dad at bedside states we are going to [place] risks explained to patient if leaving, including possible , encouraged to return, patient and Dad at bedside verablize understanding, AMA form signed and placed on chart, Dr. Mar is aware.
== END 2024-07-08 10:54 | disposition left against medical advice (07) ==
PROVIDERS: Nurse Practitioner Primary Care; Emergency Provider Emergency Medicine; PCP Family Medicine
DX: Z53.29 Procedure and treatment not carried out because of patient's decision for other reasons (principal)
CPT/HCPCS: 36415; 80053; 81001; 83605; 83690; 84145; 85025; 87040; 96360; 99284; J7030; A9270

== ENCOUNTER 2024-09-24 05:08 | Emergency (ER) | payer MEDICAID, SELFPAY ==
[2024-09-24] VITALS (8 sets, daily range): BP systolic 100–117; BP diastolic 60–75; PULSE 69–101; RESP 16–19; TEMP 36.6–36.8; O2SAT 94–100; BMI 21.6
--- NOTE | 2024-09-24 05:14 | PC.NURSE ---
BLOOD SUGAR CHECK DONE =37, DR. WAN AWARE, ORDER TO GIVE PT FOOD AND OJ.
--- NOTE | 2024-09-24 05:19 | PC.NURSE ---
OJ WITH SUGAR GIVEN, SANDWICH GIVEN.
[2024-09-24 05:45] LABS: Basophils % (Auto) 1 % (0-2.5); Eosinophils # (Auto) 0.1 Thou/mm3 (0.0-0.5); Eosinophils % (Auto) 1 % (0-10); Hematocrit 37.9 % (36.0-46.0); Hemoglobin 12.3 g/dL (12.0-16.0); Immature Granulocytes % (Auto) 0 % (0-0); Immature Granulocytes Auto 0.02 Thou/mm3 (0.00-0.00); Lymphocytes # (Auto) 4.4 Thou/mm3 (1.0-4.8); Lymphocytes % (Auto) 52 % (10-50); Mean Corpuscular HGB Conc 32.5 g/dl (31.0-37.0); Mean Corpuscular Hemoglobin 28.6 pg (25.0-35.0); Mean Corpuscular Volume 88 fL (80-100); Monocytes # (Auto) 0.8 Thou/mm3 (0.0-0.8); Monocytes % (Auto) 9 % (0-12); Neutrophils # (Auto) 3.1 Thou/mm3 (1.8-7.7); Neutrophils % (Auto) 37 % (37-80); Nucleated Red Blood Cell % 0 /100 WBC (0); Platelet Count 287 Thou/mm3 (140-440); RDW Standard Deviation 45.5 fL (36.4-46.3); White Blood Count 8.5 Thou/mm3 (3.6-11.0)
--- NOTE | 2024-09-24 05:54 | PC.NURSE ---
PT BROUGHT TO ER BY [facility] FOR MEDICAL CLEARANCE DUE TO PT LOW BLOOD SUGAR.
--- NOTE | 2024-09-24 05:55 | PC.NURSE ---
PT RECIEVED X2 GLUCOSE TABS AT [facility] BEFORE COMING HERE.
[2024-09-24 06:01] LABS: HCG,Qualitative Serum Negative
[2024-09-24 06:16] LABS: Alanine Aminotransferase 35 U/L (10-49); Albumin, Serum 3.5 gm/dL (3.5-5.0); Albumin/Globulin Ratio 0.6 (1.2-2.2); Alkaline Phosphatase 71 U/L (46-116); Anion Gap 6 (7-16); Aspartate Amino Transferase 40 U/L (0-34); BUN/Creatinine Ratio 10 Ratio (12-20); Bilirubin,Total 0.3 mg/dL (0.3-1.2); Blood Urea Nitrogen 7 mg/dL (9-23); Calcium 8.6 mg/dL (8.3-10.6); Carbon Dioxide 25.7 mMol/L (20.0-31.0); Chloride 106 mMol/L (98-107); Creatinine (Component) 0.7 mg/dL (0.6-1.3); Estimated Creatinine Clearance 74.9 mL/min (>60); Globulin 5.6 gm/dL (2.3-3.5); Glucose 106 mg/dL (74-106); Osmolality,Calculated 273 (275-295); Potassium 3.8 mMol/L (3.4-5.1); Sodium 138 mMol/L (136-145); Total Protein 9.1 gm/dL (5.7-8.2); eGFR > 60 See Note
--- NOTE | 2024-09-24 07:15 | PC.NURSE ---
PT HERE FROM [facility] FOR CLEARANCE D/T FSBS OF 47 AT [facility]. PER [facility] REPORT FSBS WAS 37 HERE AND NIGHT SAID FEED PT. PER REPORT PT DRANK ONE OJ AND ATE HALF SANDWICH AND FSBS UP TO 70. TALKED WITH CLAU MEDINA AND AMP D50 ORDERED
[2024-09-24] MEDS: DEXTROSE 50%-WATER INJ 50 ML SYRINGE IVP (07:16)
--- NOTE | 2024-09-24 07:28 | EDNOTE_ITS ---
ED General RME/HPI General Chief complaint: Medical Clearance Stated complaint: group home clearance Time Seen by Provider: 09/24/24 05:33 Arrival date/time: 09/24/24 05:08 Limitations: no limitations RME / HPI RME / HPI narrative: DR. RAO MAIN ED EVALUATION: 24 year old female with past medical history significant for diabetes and iron deficiency anemia presents to the Emergency Department brought in by police as a medical clearance for altered mental status. Patient was arrested at 2 AM today form home; when she arrived to group home she became altered. Her blood glucose was 37. Patient here complains of dizziness only. Last oral intake was yesterday morning. No fall or injuries. No other symptoms at this time. Related Data Home Medications ?Medication ?Instructions ?Recorded ?Confirmed vitamins-iron fumarate 27 1 tab PO QDAY 03/1408/31/22 mg iron-folic acid 0.8 mg tablet ( Vitamin) Previous Rx's ?Medication ?Instructions ?Recorded amoxicillin 875 mg-potassium 1 tab PO BID #14 tabs 11/24 clavulanate 125 mg tablet ascorbic acid (vitamin C) 100 mg 100 mg PO Q OTHER DAY #30 tabs 07/08/24 tablet (Vitamin C) azithromycin 500 mg tablet 500 mg PO QDAY #2 tabs 11/24 calcium carbonate 500 mg PO QDAY #30 tabs 11/24 cholecalciferol (vitamin D3) 1,250 1,250 mcg PO QWEEK #7 caps 07/08/24 mcg (50,000 unit) capsule ferrous sulfate 325 mg (65 mg 325 mg PO Q OTHER DAY #3 0 tabs 07/08/24 iron) tablet,delayed release folic acid 1 mg tablet 1 mg PO QDAY #30 tabs oseltamivir 75 mg capsule (Tamiflu) 75 mg PO BID #7 ca ps 07/08/24 Allergies Allergy/AdvReac Type Severity Reaction Status Date / Time Sulfa (Sulfonamide Allergy Severe Swelling, Verified 07/08/24 08:16 Antibiotics) hives Review of Systems Review of Systems Systems Reviewed: All systems reviewed, normal except as documented Past Medical History Past Medical History RESPIRATORY: Positive Pneumonia (2016 MRSA pneumonia requiring hospitalization) REPRODUCTIVE: Positive Previous Pregnancies (x5) HEMATOLOGIC: Positive Blood Disorders and Anemia PSYCHO/SOCIAL: Positive Recreational Drug Use (Cocaine; Meth; Marijuana) and Anxiety OTHER HISTORY: Positive Hospitalization (childbirth and pneumonia), Blood Transfusions and MRSA (pneumonnia 2016) Family History FAMILY HISTORY: Positive Family Cardiac Disorders (LOW BLOOD PRESSURE), Family Cancer (MOTHER-KIDNEY CANCER) and Family Surgery (MOTHER-KIDNEY REMOVAL) Surgical History SURGICAL: Positive Hysterectomy (2022) and Section (2022) Social History SMOKING STATUS: Never smoker SECOND HAND EXPOSURE: No SUBSTANCE USE: marijuana, crack/cocaine (use in past) and amphetamines ALCOHOL: Never ED Exam General Limitations: Present no limitations General appearance: Present alert, in no apparent distress and other (severe emaciated, thin) Head Head exam: Present atraumatic and normocephalic Eye Eye exam: Present normal appearance, PERRL and EOMI ENT ENT exam: Present normal exam, normal oropharynx and mucous membranes moist Neck Neck exam: Present normal inspection, full ROM and trachea midline Chest Chest inspection: Present normal inspection and symmetric chest wall rise Respiratory Respiratory exam: Present normal lung sounds bilaterally Cardiovascular Cardiovascular exam: Present regular rate, normal rhythm and normal heart sounds Abdominal Exam Abdominal exam: Present soft and normal bowel sounds Extremities Exam Extremities exam: Present normal inspection and full ROM Back Exam Back exam: Present normal inspection and full ROM Neurological Exam Neurological exam: Present alert, oriented X3 and CN II-XII intact Psychiatric Psychiatric exam: Present normal affect and normal mood Skin Skin exam: Present warm, dry, intact and normal color Course Quality Measures none Orders Category Date Time Status Bedside Blood Glucose Q1H Care 09/24/24 07:27 Active Fingerstick [Bedside Blood Glucose] NOW Care 09/24/24 05:13 Completed Fingerstick [Bedside Blood Glucose] Q1HR Care 09/24/24 05:30 Active IV [Insert IV] NOW Care 09/24/24 05:18 Active Insert IV STAT Care 09/24/24 07:28 Completed Diet Regular Diet 09/24/24 Breakfast Completed Diet Regular Diet 09/24/24 Lunch Active CBC Stat Lab 09/24/24 05:21 Completed CMP [Comprehensive Metabolic Panel] Stat Lab 09/24/24 05:21 Completed Drug Screen,Urine Stat Lab 09/24/24 05:33 Ordered HCG,Qualitative Serum Stat Lab 09/24/24 05:25 Completed UA, C/S IF [Urinalysis, C/S if Indicated] Stat Lab 09/24/24 07:29 Ordered Urinalysis, C/S if Indicated Stat Lab 09/24/24 05:19 Ordered Dextrose 50% Syr [D50w Syringe Abboject] Med 09/24/24 07:09 Discontinued 50 ml IVP X1 ONE Vital Signs Vital signs: Vital Signs Temperature 98.3 F 09/24/24 05:13 Pulse Rate 69 09/24/24 05:13 Respiratory Rate 18 09/24/24 05:13 Blood Pressure 117/75 09/24/24 05:13 Pulse Oximetry (%) 94 L 09/24/24 05:13 Oxygen Delivery Method Room Air 09/24/24 05:13 Discharge Plan Plan Patient Disposition: Alf/Court/Law Prescriptions/Referrals Prescriptions/Med Rec: No Action Vitamin 27 mg iron- 0.8 mg Tablet 1 tab PO QDAY cholecalciferol (vitamin D3) 1,250 mcg (50,000 unit) capsule 1,250 mcg PO QWEEK Qty: 7 0RF calcium carbonate 500 mg calcium (1,250 mg) tablet 500 mg PO QDAY Qty: 30 3RF folic acid 1 mg tablet 1 mg PO QDAY Qty: 30 3RF ferrous sulfate 325 mg (65 mg iron) tablet,delayed release (DR/EC) 325 mg PO Q OTHER DAY Qty: 30 3RF amoxicillin-pot clavulanate 875-125 mg tablet 1 tab PO BID Qty: 14 0RF oseltamivir [Tamiflu] 75 mg capsule 75 mg PO BID Qty: 7 0RF azithromycin 500 mg tablet 500 mg PO QDAY Qty: 2 0RF Vitamin C 100 mg tablet 100 mg PO Q OTHER DAY Qty: 30 3RF Rx Instructions: Please take this medicine along with ferrous sulfate. Referrals: Wu Shine MD [Primary Care Provider] - In 1 week Problem List Clinical Impression: Hypoglycemia, Methamphetamine use Patient/Caregiver Discharge Instructions Education Materials: Hypoglycemia (Low Blood Sugar), Glucose Check Steps, Hypoglycemia Steps Print Language: Armenian MDM Narrative MDM hospital course: I, Margarita Holt, am scribing for and in the presence of Dr. Rao. Patient has hypoglycemia, failure to thrive. Here for group home clearance. Plan to check her sugars and if stable then discharge and if not then admission will be needed. Patient's blood glucose is now stable, 80-90s. Hypoglycemia induced for reduced intake and now safe for discharge. Methamphetamine abuse as well. Clinical Information Provided by patient and law enforcement Medical Records Reviewed [facility] and Alf Meds/Rx Considered, not Ordered None Labs/Rad/Tests considered, not Ordered None Chronic Illness/Social Conditions Add or document further as needed: diabetes and iron deficiency anemia EKG EKG not done Lab Interpretation Labs: see narrative above Imaging Imaging interpretation: none Medication Administration(s) Medication Administration History Discontinued Medications Dextrose (Dextrose 50%-Water Inj 50 Ml Syringe) 50 ml IVP X1 ONE Stop: 09/24/24 07:10 Last Admin: 09/24/24 07:16 Dose: 50 ml Documented By: KENNY Diagnosis Differential diagnosis: hypoglycemia, failure to thrive, group home clearance, dehydration Most likely dx, and/or detailed dx discussion: Hypoglycemia Methamphetamine abuse Alf clearance Dispositon Disposition: Incarceration/CPS
--- NOTE | 2024-09-24 07:28 | PC.NURSE ---
DR. COLE REQUESTS MEAL BE ORDERED FOR PT. DONE
--- NOTE | 2024-09-24 08:56 | PC.NURSE ---
DR. MORLEY INFORMED THAT PT REFUSING TO VOID
== END 2024-09-24 13:06 ==
PROVIDERS: Emergency Medicine; Emergency Provider Emergency Medicine; PCP Family Medicine
DX: Z02.89 Encounter for other administrative examinations (principal); E11.649 Type 2 diabetes mellitus with hypoglycemia without coma; F15.90 Other stimulant use, unspecified, uncomplicated
CPT/HCPCS: 36415; 80053; 80307; 81001; 84703; 85025; 96374; 99284

== ENCOUNTER 2025-01-28 21:30 | Emergency (ER) | payer MEDICAID, SELFPAY ==
[2025-01-28 21:33] VITALS: BMI 23.1
[2025-01-28 21:36] VITALS: BP 111/69; PULSE 104; RESP 18; TEMP 37.2; O2SAT 99
--- NOTE | 2025-01-28 21:58 | PC.NURSE ---
PT HAS BLOOD SUGAR OF 66, HOWEVER ASYMPTOMATIC. JUICE AND FOOD GIVEN TO PATIENT, WILL RECHECK SUGAR IN ONE HOUR
[2025-01-28 22:36] VITALS: BP 107/69; PULSE 88; RESP 14; O2SAT 99
--- NOTE | 2025-01-28 23:06 | PD.EDMEDCL ---
ED Medical Clearance RME/HPI General Chief complaint: Medical Clearance Stated complaint: [facility] CLEARANCE Time Seen by Provider: 01/28/25 23:05 Arrival date/time: 01/28/25 21:30 RME / HPI RME / HPI Narrative: 24-year-old patient with history of type 1 diabetes brought in by law enforcement for longterm clearance. Patient denies HOPKINS, fever, chills, SOB or fatigue. Random Blood glucose indcates a blood sugar of 56mg/dl. Patient denies fatigue, chills, SOB or neurological changes Related Information Home Medications ?Medication ?Instructions ?Recorded ?Confirmed vitamins-iron fumarate 27 1 tab PO QDAY 03/14/18 08/31/22 mg iron-folic acid 0.8 mg tablet ( Vitamin) Previous Rx's ?Medication ?Instructions ?Recorded amoxicillin 875 mg-potassium 1 tab PO BID #14 tabs 07/08/24 clavulanate 125 mg tablet ascorbic acid (vitamin C) 100 mg 100 mg PO Q OTHER DAY #30 tabs 07/08/24 tablet (Vitamin C) azithromycin 500 mg tablet 500 mg PO QDAY #2 tabs 07/08/24 calcium carbonate 500 mg PO QDAY #30 tabs 07/08/24 cholecalciferol (vitamin D3) 1,250 1,250 mcg PO QWEEK #7 caps 07/08/24 mcg (50,000 unit) capsule ferrous sulfate 325 mg (65 mg 325 mg PO Q OTHER DAY #30 tabs 07/08/24 iron) tablet,delayed release folic acid 1 mg tablet 1 mg PO QDAY #30 tabs 07/08/24 oseltamivir 75 mg capsule (Tamiflu) 75 mg PO BID #7 caps 07/08/24 Allergies Allergy/AdvReac Type Severity Reaction Status Date / Time Sulfa (Sulfonamide Allergy Severe Swelling, Verified 07/08/24 08:16 Antibiotics) hives Review of Systems Review of Systems Systems Reviewed: All systems reviewed, normal except as documented Constitutional Constitutional: Reports system reviewed and no additional complaints, except as documented ENT Ears, Nose, Mouth, and Throat: Reports system reviewed and no additional complaints, except as documented Cardiovascular Cardiovascular: Reports system reviewed and no additional complaints, except as documented Respiratory Respiratory: Reports system reviewed and no additional complaints, except as documented Gastrointestinal Gastrointestinal: Reports system reviewed and no additional complaints, except as documented Musculoskeletal Musculoskeletal: Reports system reviewed and no additional complaints, except as documented Neurologic Neurologic: Reports system reviewed and no additional complaints, except as documented ED Exam General General appearance: Present alert and in no apparent distress Head Head exam: Present atraumatic and normocephalic ENT ENT exam: Present normal exam and normal oropharynx Neck Neck exam: Present normal inspection and full ROM Respiratory Respiratory exam: Present normal lung sounds bilaterally Cardiovascular Cardiovascular exam: Present regular rate and normal rhythm Extremities Exam Extremities exam: Present normal inspection Neurological Exam Neurological exam: Present alert, oriented X3, CN II-XII intact, normal gait, motor sensory deficit and reflexes normal Course Quality Measures none Vital Signs Vital signs: Vital Signs Temperature 99 F 01/28/25 21:36 Pulse Rate 104 H 01/28/25 21:36 Respiratory Rate 18 01/28/25 21:36 Blood Pressure 111/69 01/28/25 21:36 Pulse Oximetry (%) 99 01/28/25 21:36 Oxygen Delivery Method Room Air 01/28/25 21:36 Medical Clearance MDM Narrative MDM Narrative:: Patient presents emergency department brought in by law enforcement for longterm clearance blood sugar indicates 56 mg/dL that steadily improved with fluids and drinks in the emergency department. Patient remained neurologically intact throughout ED stay and is stable to DC to law enforcement. Patient data External records reviewed:: None Clinical information provided by:: patient and law enforcement Social determinants that could affect healthcare access:: none (na) Patient has the following chronic illnesses:: Type 1 DM How is presenting disease/condition affected by chronic disease/condition?: exacerbated by Evaluation data The following diagnostics were reviewed and interpreted by me:: lab results Lab and/or radiology exams considered but not ordered:: na Interpretation Summary: improving Blood glucose level Medications / Prescriptions Medications or Prescriptions considered but not ordered:: na Medication administrations:: na Consultations Consultation(s) initiated? (list below): No Diagnosis Medical Clearance Differential Diagnosis: other Most likely diagnosis given after review of the tests above:: transient reduced blood sugar Admission Indicated Admission indicated?: not indicated Admission Request Was there a request for admission?: No Disposition Plan Disposition Plan: Discharge Discharge Attestation Discharge Attestation: The patient and all family members were given an opportunity to ask questions and understood the discharge instructions. Discharge instructions specifically effects, indications for sooner follow up or return to the emergency department, and the expected course of current diagnosis. Patient condition: Stable Discharge Plan Plan Patient Disposition: [facility]/Court/Law Prescriptions/Referrals Prescriptions/Med Rec: No Action Vitamin 27 mg iron- 0.8 mg Tablet 1 tab PO QDAY cholecalciferol (vitamin D3) 1,250 mcg (50,000 unit) capsule 1,250 mcg PO QWEEK Qty: 7 0RF calcium carbonate 500 mg calcium (1,250 mg) tablet 500 mg PO QDAY Qty: 30 3RF folic acid 1 mg tablet 1 mg PO QDAY Qty: 30 3RF ferrous sulfate 325 mg (65 mg iron) tablet,delayed release (DR/EC) 325 mg PO Q OTHER DAY Qty: 30 3RF amoxicillin-pot clavulanate 875-125 mg tablet 1 tab PO BID Qty: 14 0RF oseltamivir [Tamiflu] 75 mg capsule 75 mg PO BID Qty: 7 0RF azithromycin 500 mg tablet 500 mg PO QDAY Qty: 2 0RF Vitamin C 100 mg tablet 100 mg PO Q OTHER DAY Qty: 30 3RF Rx Instructions: Please take this medicine along with ferrous sulfate. Problem List Clinical Impression: Medical clearance for incarceration Patient/Caregiver Discharge Instructions Print Language: Arabic
== END 2025-01-28 23:45 ==
LOC: SERX 23:45
PROVIDERS: Emergency Provider Emergency Medicine; PCP Family Medicine
DX: Z02.89 Encounter for other administrative examinations (principal); E10.9 Type 1 diabetes mellitus without complications; Z79.4 Long term (current) use of insulin
CPT/HCPCS: 99281

== ENCOUNTER 2025-03-18 17:40 | Emergency (ER) | payer MEDICAID, SELFPAY ==
[2025-03-18 18:02] VITALS: BMI 22.5
--- NOTE | 2025-03-18 18:03 | EDNOTE_ITS ---
<Statement entered by Mary Anne Mar MD - 04/02/25 07:22> As co-signing physician, I was present and available for consult prn. I concur with the plan and care as documented by the midlevel provider. ED Medical Clearance RME/HPI General Chief complaint: Medical Clearance Stated complaint: SKILLED NURSING CLEARANCE Time Seen by Provider: 03/18/25 18:00 Arrival date/time: 03/18/25 17:40 24-year-old female patient with a significant history of diabetes mellitus however according to her she is not taking her insulin she only take when she feels sick was brought in by law enforcement for hypoglycemia. Prior to being booked for incarceration patient's sugar was noted to be 59. Patient is denying any dizziness no vomiting no chest pain no weakness no complaints. She did not have any insulin today. Related Information Home Medications ?Medication ?Instructions ?Recorded ?Confirmed vitamins-iron fumarate 27 1 tab PO QDAY 03/1408/31/22 mg iron-folic acid 0.8 mg tablet ( Vitamin) Previous Rx's ?Medication ?Instructions ?Recorded amoxicillin 875 mg-potassium 1 tab PO BID #14 tabs 11/24 clavulanate 125 mg tablet ascorbic acid (vitamin C) 100 mg 100 mg PO Q OTHER DAY #30 tabs 07/08/24 tablet (Vitamin C) azithromycin 500 mg tablet 500 mg PO QDAY #2 tabs 11/24 calcium carbonate 500 mg PO QDAY #30 tabs 11/24 cholecalciferol (vitamin D3) 1,250 1,250 mcg PO QWEEK #7 caps 07/08/24 mcg (50,000 unit) capsule ferrous sulfate 325 mg (65 mg 325 mg PO Q OTHER DAY #3 0 tabs 07/08/24 iron) tablet,delayed release folic acid 1 mg tablet 1 mg PO QDAY #30 tabs oseltamivir 75 mg capsule (Tamiflu) 75 mg PO BID #7 ca ps 07/08/24 Allergies Allergy/AdvReac Type Severity Reaction Status Date / Time Sulfa (Sulfonamide Allergy Severe Swelling, Verified 03/18/25 18:06 Antibiotics) hives Review of Systems Review of Systems Narrative Review of Systems: Review of system reviewed and within normal limits except mentioned in HPI ED Exam Narrative Physical exam: VITAL SIGNS: Reviewed. GENERAL APPEARANCE: Alert and interactive, follows commands, no acute distress, HEAD AND FACE: Non-traumatic. ENT: PERRL, pink conjunctivitis, eyelid no trauma, Mucous membrane moist. NECK: Supple, nontender, no nuchal rigidity. CHEST: No tenderness, no crepitus, no paradoxical movement, no retractions. LUNGS: Clear, well ventilated, symmetric, no rales, no wheezing, no ronchi, no stridor, good breath sounds bilaterally. HEART: Regular rate, regular rhythm, no murmur, no gallops. ABDOMEN: Soft, positive bowel sounds, nondistended, no guarding, nontender, no rebound, no masses, RECTAL: Deferred. GENITAL: Deferred. NEUROLOGICAL: Gross motor function intact sensory function intact, Appropriate for age. MUSCULOSKELETAL: low back nontender, full range of motion. EXTREMITIES: Nontender, full range of motion. SKIN: Color pink, dry, no rash, no lacerations, no abrasions, no contusions. LYMPHATICS: Deferred. Course Quality Measures none Orders Category Date Time Status Blood glucose [Bedside Blood Glucose] NOW Care 03/18/25 18:02 Ordered Medical Clearance MDM Narrative MDM Narrative:: 24-year-old female patient with a significant history of diabetes mellitus however according to her she is not taking her insulin she only take when she feels sick was brought in by law enforcement for hypoglycemia. Prior to being booked for incarceration patient's sugar was noted to be 59. Patient is denying any dizziness no vomiting no chest pain no weakness no complaints. She did not have any insulin today. On my initial evaluation patient blood sugar was noted to be 71. Patient was given orange juice and sandwich prior to discharge back to retirement Patient is medically cleared for incarceration. Patient data External records reviewed:: None Clinical information provided by:: patient Social determinants that could affect healthcare access:: none Patient has the following chronic illnesses:: History of diabetes mellitus with poor medical compliance How is presenting disease/condition affected by chronic disease/condition?: exacerbated by Evaluation data The following diagnostics were reviewed and interpreted by me:: lab results Lab and/or radiology exams considered but not ordered:: none Interpretation Summary: Patient was given sandwich and orange juice prior to discharge Medications / Prescriptions Medications or Prescriptions considered but not ordered:: None Medication administrations:: None Consultations Consultation(s) initiated? (list below): No Diagnosis Medical Clearance Differential Diagnosis: other (Medical clearance for incarceration, hypoglycemia) Most likely diagnosis given after review of the tests above:: Medical clearance for incarceration Admission Indicated Admission indicated?: not indicated Admission Request Was there a request for admission?: No Disposition Plan Disposition Plan: Discharge Discharge Attestation Discharge Attestation: Patient condition: Stable Discharge Plan Plan Patient Disposition: Senior Care/Court/Law Discharge Disposition comment: Stable Prescriptions/Referrals Prescriptions/Med Rec: No Action Vitamin 27 mg iron- 0.8 mg Tablet 1 tab PO QDAY cholecalciferol (vitamin D3) 1,250 mcg (50,000 unit) capsule 1,250 mcg PO QWEEK Qty: 7 0RF calcium carbonate 500 mg calcium (1,250 mg) tablet 500 mg PO QDAY Qty: 30 3RF folic acid 1 mg tablet 1 mg PO QDAY Qty: 30 3RF ferrous sulfate 325 mg (65 mg iron) tablet,delayed release (DR/EC) 325 mg PO Q OTHER DAY Qty: 30 3RF amoxicillin-pot clavulanate 875-125 mg tablet 1 tab PO BID Qty: 14 0RF oseltamivir [Tamiflu] 75 mg capsule 75 mg PO BID Qty: 7 0RF azithromycin 500 mg tablet 500 mg PO QDAY Qty: 2 0RF Vitamin C 100 mg tablet 100 mg PO Q OTHER DAY Qty: 30 3RF Rx Instructions: Please take this medicine along with ferrous sulfate. Problem List Clinical Impression: Medical clearance for incarceration Patient/Caregiver Discharge Instructions Discharge Activity: activity as tolerated Education Materials: Reducing Your Health Risks ... Additional Instructions: Thank you for the opportunity for serving you today. You are stable for discharged . You are advised to: Follow-up with your PCP in 1 to 2 days once you get out of retirement Return to ED for worsening of symptoms Print Language: French Stand Alone Forms: Bessie Award Info., Patient Portal Info Letter
[2025-03-18 18:07] VITALS: BP 100/72; PULSE 93; RESP 16; TEMP 36.9; O2SAT 97
== END 2025-03-18 18:15 ==
LOC: SERX 18:36
PROVIDERS: Emergency Provider Emergency Medicine; PCP Family Medicine
DX: Z02.89 Encounter for other administrative examinations (principal)
CPT/HCPCS: 99281